=== PATIENT | female | born 1985 | race Two or more races ===

== ENCOUNTER → 2020-04-30 | Outpatient (CLI) | payer OTHER ==
--- NOTE | 2020-05-01 02:03 | Diagnostic Imaging Report ---
EXAM: CT Head Without Intravenous Contrast CLINICAL HISTORY: PAIN TECHNIQUE: Axial computed tomography images of the head/brain without intravenous contrast. CTDI is 53.4 mGy and DLP is 1232.5 mGy-cm. One or more of the following dose reduction techniques were used: automated exposure control, adjustment of the mA and/or kV according to patient size, use of iterative reconstruction technique. COMPARISON: No relevant prior studies available at this time. FINDINGS: Brain: No acute hemorrhage. No significant white matter disease. No acute edema. Ventricles: Status post posterior approach ventricular shunt catheter which terminates in the anterior right lateral ventricle. No evidence of shunt discontinuity. No hydrocephalus. Bones/joints: Unremarkable. Soft tissues: Unremarkable. Sinuses: No acute sinusitis. Mastoid air cells: No mastoid effusion. IMPRESSION: Status post right parietal approach ventricular shunt catheter which terminates in the anterior right lateral ventricle. No hydrocephalus.
== END | disposition home or self-care (01) ==
LOC: CAT 23:39
DX: R51.9 Headache, unspecified (principal)
CPT/HCPCS: 70450